=== PATIENT | female | born 1975 | race African-American/Black ===

== ENCOUNTER 2018-04-21 17:06 | Emergency (ER) | payer OTHER ==
[~2018-04-21] VITALS: Ht 167.6 cm; Wt 118.8 kg
[2018-04-21 17:17] VITALS: BP 141/81
[2018-04-21] MEDS ORDERED: IPRATROPIUM BROM 0.5 MG/2.5ML INH SOL NEB ONE (17:30)
[2018-04-21] MEDS ORDERED: ALBUTEROL SULF 2.5 MG/0.5ML(0.5%) NEB SOLN NEB ONE (17:30)
[2018-04-21] MEDS ORDERED: methylPREDNISolone SOD SUCC 125 MG/2 ML VL IM ONE (17:30)
[2018-04-21] MEDS ORDERED: TRIAMCINOLONE 40MG/ML 1ML VIAL IM ONE (19:15)
== END 2018-04-21 19:45 | disposition home or self-care (01) ==
LOC: ER 17:09 → EDBD 17:09 → ER 19:45
DX: J45.909 Unspecified asthma, uncomplicated (principal)
CPT/HCPCS: 93005; 94640; 96372; 99283; J2930; J3301; J7611; J7644